=== PATIENT | female | born 1970 | race African-American/Black ===

== ENCOUNTER 2024-12-21 08:55 | Emergency (ER) | payer OTHER ==
[2024-12-21] MEDS: KETOROLAC 15 MG/ML 1 ML VIAL IM STA (09:22)
[2024-12-21] MEDS: ORPHENADRINE 30 MG/ML 2 ML VIAL IM STA (09:22)
--- NOTE | 2024-12-21 09:46 | XR ---
EXAMINATION TYPE: XR Hip Complete RT DATE OF EXAM: 12/21/2024 9:42 AM INDICATION: Patient age:Female; 54 years old; Reason for study: pain; PHH. pain COMPARISON: None. TECHNIQUE: The right hip was examined in the frontal and lateral projections . FINDINGS: No evidence of any acute osseous pathology, joint dislocation, or soft tissue swelling. IMPRESSION: No acute osseous pathology. [facility], , 12/21/2024 9:44 AM
--- NOTE | 2024-12-21 09:47 | XR ---
EXAMINATION TYPE: XR lumbar spine 2 or 3V DATE OF EXAM: 12/21/2024 CLINICAL HISTORY: pain TECHNIQUE: Three views of the lumbar spine are submitted. COMPARISON: None. FINDINGS: There are 5 lumbar type vertebral bodies identified. The lumbar spine shows satisfactory alignment w ithout evidence of acute fracture or dislocation. Vertebral body heights are within normal limits. Disc space narrowing with endplate sclerosis and anterior osteophytosis at L4-L5 and L5-S1. Prominent facet arthropathy of the lower lumbar spine. The overlying soft tissue appears unremarkable. Surgic al clips within the left mid abdomen. IMPRESSION: 1. No acute fracture or dislocation is seen in the lumbar spine. 2. Moderate multilevel degenerative disc disease and facet arthropathy lower lumbar spine. [facility], , 12/21/2024 9:44 AM
[2024-12-21] MEDS: ONDANSETRON ODT 4 MG TAB PO STA (09:58)
[2024-12-21] MEDS: droPERidol 2.5 MG/ML VIAL IM ONE (10:02)
--- NOTE | 2024-12-21 11:19 | ED ---
Lower Extremity Injury HPI - General Chief Complaint: Extremity Injury, Lower Stated Complaint: R hip pain Time Seen by Provider: 12/21/24 08:56 Source: patient, EMS, RN notes reviewed Mode of arrival: EMS Limitations: no limitations - History of Present Illness Initial Comments: 54-year-old female presents emergency department with chief complaint of right hip leg and back pain. Patient states that she woke up with pain and rates it states that hurts with any movement is much better at rest she denies any bowel, bladder incontinence attempted no 7 seizures no falls. She has a complaint of abdominal pain no urinary symptoms denies any swelling or discoloration of her leg she has no pain past her thigh. - Related Data Previous Rx's Medication Instructions Recorded Cyclobenzaprine [Flexeril] 10 mg PO TID PRN #15 tab 12/21/24 Ketorolac [Toradol] 10 mg PO Q8HR #15 tab 12/21/24 predniSONE 50 mg PO DAILY #5 tab 12/21/24 Allergies Allergy/AdvReac Type Severity Reaction Status Date / Time No Known Allergies Allergy Verified 12/21/24 09:01 Review of Systems ROS Statement: Those systems with pertinent positive or pertinent negative responses have been documented in the HPI. ROS Other: All systems not noted in ROS Statement are negative. Past Medical History Past Medical History: Asthma, Diabetes Mellitus, Hypertension Past Surgical History: Bariatric Surgery Smoking Status: Former smoker Past Alcohol Use History: Daily, Heavy General Exam Limitations: no limitations General appearance: alert, in no apparent distress Head exam: Present: atraumatic, normocephalic, normal inspection Eye exam: Present: normal appearance, PERRL, EOMI. Absent: scleral icterus, conjunctival injection, periorbital swelling ENT exam: Present: normal exam, normal oropharynx, mucous membranes moist Neck exam: Present: normal inspection, full ROM. Absent: tenderness, meningismus, lymphadenopathy Respiratory exam: Present: normal lung sounds bilaterally. Absent: respiratory distress, wheezes, rales, rhonchi, stridor Cardiovascular Exam: Present: regular rate, normal rhythm, normal heart sounds. Absent: systolic murmur, diastolic murmur, rubs, gallop, clicks GI/Abdominal exam: Present: soft, normal bowel sounds. Absent: distended, tende rness, guarding, rebound, rigid Extremities exam: Present: other (Mild tenderness right hip, right lower back pain with range of motion no calf tenderness neurovascular intact with equal pedal pulses no discoloration) Back exam: Present: full ROM (Range of motion lumbar), tenderness, muscle spasm, paraspinal tenderness. Absent: vertebral tenderness Neurological exam: Present: alert, oriented X3, CN II-XII intact, reflexes normal. Absent: motor sensory deficit Course Vital Signs 12/21/24 08:56 Temperature 98.9 F Pulse Rate 64 Respiratory 22 Rate Blood Pressure 147/83 O2 Sat by Pulse 100 Oximetry Medical Decision Making - Medical Decision Making Was pt. sent in by a medical professional or institution (, PA, PAINT DIPPER, urgent care, hospital, or [facility]...) When possible be specific @ -[No] Did you speak to anyone other than the patient for history (EMS, parent, family, police, friend...)? What history was obtained from this source @ -[No] Did you review nursing and triage notes (agree or disagree)? Why? @ -[I reviewed and agree with nursing and triage notes] Were old charts reviewed (outside hosp., previous admission, EMS record, old EKG, old radiological studies, urgent care reports/EKG's, [facility] records)? Report findings @ -No old charts were reviewed Differential Diagnosis (chest pain, altered mental status, abdominal pain women, abdominal pain men, vaginal bleeding, weakness, fever, dyspnea, syncope, headache, dizziness, GI bleed, back pain, seizure, CVA, palpatations, mental health, musculoskeletal)? @ -Differential Back Pain: Strain, zoster, cauda equina syndrome, epidural abscess, vertebral osteomyelitis, discitis, fracture, subluxation, disc herniation, DJD, spinal stenosis, dissection, AAA, pancreatitis, peptic ulcer disease, pyelonephritis, k idney stone, this is not meant to be an all-inclusive list. EKG interpreted by me (3pts min.). @ -None X-rays interpreted by me (1pt min.). @ -X-ray lumbar spine showing degenerative changes, no acute fracture X-ray right hip no dislocation, no acute osseous abnormality CT interpreted by me (1pt min.). @ -None done U/S interpreted by me (1pt. min.). @ -None done What testing was considered but not performed or refused? (CT, X-rays, U/S, labs)? Why? @ -None What meds were considered but not given or refused? Why? @ -None Did you discuss the management of the patient with other professionals (marco antonio miles i.e. , PA, PA[employer] D[employer], lab, RT, psych nurse, social secretary, senior office support assistant sosa, teacher, recreation officer, case management coordinator)? Give summary @ -No Was smoking cessation discussed for >3mins.? @ -No Was critical care preformed (if so, how long)? @ -No Were there social determinants of health that impacted care today? How? (Homelessness, low income, unemployed, alcoholism, drug addiction, transportation, low edu. Level, literacy, decrease access to med. care, group home, rehab)? @ -No Was there de-escalation of care discussed even if they declined (Discuss DNR or withdrawal of care, Hospice)? DNR status @ -No What co-morbidities impacted this encounter? (DM, HTN, Smoking, COPD, CAD, Cancer, CVA, ARF, Chemo, Hep., AIDS, mental health diagnosis, sleep apnea, morbid obesity)? @ -None Was patient admitted / discharged? Hospital course, mention meds given and route, prescriptions, significant lab abnormalities, going to OR and other pertinent info. @ -Discharge patient is greatly improved after Toradol and Norflex. She is not nausea from the pain patient work with otherwise negative additional mild guarding changes lumbar spine she is neurovascular intact we discharged in stable condition patient agrees with plan. Undiagnosed new problem with uncertain prognosis? @ -No Drug Therapy requiring intensive monitoring for toxicity (Heparin, Nitro, Insulin, Cardizem)? @ -No Were any procedures done? @ -No Diagnosis/symptom? @ -Lumbar radiculopathy Acute, or Chronic, or Acute on Chronic? @ -Acute Uncomplicated (without systemic symptoms) or Complicated (systemic symptoms)? @ -Uncomplicated Side effects of treatment? @ -No Exacerbation, Progression, or Severe Exacerbation? @ -No Poses a threat to life or bodily function? How? (Chest pain, USA, ID, pneumonia, PE, COPD, DKA, ARF, appy, cholecystitis, CVA, Diverticulitis, Homicidal, Suicidal, threat to staff... and all critical care pts) @ -No Disposition Clinical Impression: Lumbar radiculopathy, acute Disposition: HOME SELF-CARE Condition: Stable Instructions (If sedation given, give patient instructions): Lumbar Radiculopathy (ED) Additional Instructions: Please return to the Emergency Department if symptoms worsen or any other concerns. Prescriptions: Cyclobenzaprine [Flexeril] 10 mg PO TID PRN #15 tab PRN Reason: Muscle Spasm predniSONE 50 mg PO DAILY #5 tab Ketorolac [Toradol] 10 mg PO Q8HR #15 tab Is patient prescribed a controlled substance at d/c from ED?: No Referrals: Nonstaff,Physician [Primary Care Provider] - 1-2 days Time of Disposition: 11:16
[2024-12-21 11:50] VITALS: BP 132/65; PULSE 69; RESP 18; TEMP 98.8
== END 2024-12-21 11:48 | disposition home or self-care (01) ==
LOC: EC 08:55
DX: M51.16 Intervertebral disc disorders with radiculopathy, lumbar region (principal); Z87.891 Personal history of nicotine dependence
CPT/HCPCS: 72100; 73502; 99283; 96372 ×3; J2360; J1885; J1790